=== PATIENT | male | born 1970 | race Caucasian/White ===

== ENCOUNTER 2016-11-06 08:45 | Day surgery (SDC) | payer OTHER ==
[~2016-11-06] VITALS: Ht 172.7 cm; Wt 75.0 kg
[~2016-11-06 08:45] MED LIST: ATAZ200 PO; EPZITAB4 PO; VALT1TAB26 PO; XANA0.5T PO
[2016-11-06] MEDS ORDERED: EMTR1TAB4 PO (09:19)
[2016-11-06 09:29] VITALS: BP 122/88; PULSE 88; RESP 16; TEMP 98.1; O2SAT 98
[2016-11-06] MEDS ORDERED: SODIUM CHLOR 0.9% 1000 ML INJ 1,000 ML IV SCH (10:00)
[2016-11-06 12:50] VITALS: BP 113/75; PULSE 76; RESP 16; TEMP 97.6; O2SAT 99
--- NOTE | 2016-11-06 13:50 | PD.RAD ---
Post Procedure Progress Note Pre Procedure Diagnosis: (1) Headache Post Procedure Diagnosis: (1) Headache Procedure Date: November 06, 2016 Supervising Radiologist: Kodi Mei JR Proceduralist/Assist: RT Arvin(R)() Anesthesia: Local Plan of Activity Patient to Unit: ROPU Patient Condition: Good See PACS Report for procedural detail/treatment Spinal Procedure Lumbar Puncture L3-L4 Fluid Removal (CCs): 11 Fluid Description: Clear Puncture Time: 13:36 Findings: Opening pressure: 10 cmH2O Jr. Sigifredo,Kodi De Los Santos MD November 06, 2016 13:50
[2016-11-06 15:00] VITALS: BP 109/70; PULSE 76; RESP 16; O2SAT 99
[2016-11-06 15:38] LABS: GROSS BLOOD TUBE #2 0 (0); SUPERNATE COLOR TUBE #1 CLEAR (CLEAR); SUPERNATE COLOR TUBE #2 CLEAR (CLEAR); VOLUME TUBE # 1 2.3 ML; VOLUME TUBE # 2 2.5 ML
[2016-11-06 15:39] LABS: CSF NEUTROPHILS 5 %; GROSS BLOOD TUBE #1 0 (0); GROSS BLOOD TUBE #3 0 (0); GROSS BLOOD TUBE #4 0 (0); SUPERNATE COLOR TUBE #3 CLEAR (CLEAR); SUPERNATE COLOR TUBE #4 CLEAR (CLEAR); VOLUME TUBE # 3 2.2 ML; VOLUME TUBE # 4 2.5 ML; WBC TUBE #4 5 /MM3 (0-10)
[2016-11-06 15:40] LABS: CSF LYMPHOCYTES 75 %; CSF MONOCYTES 20 %
--- NOTE | 2016-11-06 17:44 | RADRPT ---
EXAM DATE/TIME: 11/06/2016 13:38 [facility] COMPARISON: No previous studies available for comparison. INDICATIONS : Patient with history of headaches in need of lumbar puncture. MEDICAL HISTORY : 1.Meningitis 2.Increased level of lipids 3.Urogenital herpes 4.GERD 5.Hiatal hernia 6.Anxiety SURGICAL HISTORY : 1.T & A 2.Dental implants ENCOUNTER: Initial ACUITY: 1 month PAIN SCORE: 3/10 LOCATION: Neck LUMBAR PUNCTURE TIME: 1336 hours FLUORO TIME: 0.25 minutes IMAGE SERIES: ACCESS LEVEL: L3-4 FLUID: 11 cc of clear CSF was collected and sent to the laboratory for analysis. TECH NOTE; Opening pressures: 10 cm of [id number] BRIDGES MR#[id number] :68 Exam date/desc:November 06, 2016LUMBAR PUNCTURE PROCEDURE : 1. Fluoroscopic guided lumbar puncture. The risks, benefits and alternatives to the procedure were explained and verbal and written consent w as obtained. The site was prepped in sterile fashion. Full sterile technique was used, including ca p, mask, sterile gloves and gown and a large sterile sheet. Hand hygiene and 2% chlorhexidine and/or betadine/alcohol prep was utilized per protocol for cutaneous antisepsis. The skin and subcutaneous tissues were infiltrated with local anesthetic solution. With fluoroscopic guidance the lumbar thecal sac was punctured at the level above. The fluid describ ed above was removed without difficulty. The patient tolerated the procedure well and there were no complications. CONCLUSION: Uncomplicated fluoroscopically guided lumbar puncture. Opening pressures in the arturo l range. Kodi Mei Jr., MD on November 06, 2016 at 17:42 Board Certified Radiologist. This report was verified electronically.
[2016-11-07 11:23] LABS: HSV 1,PCR Negative (Negative)
[2016-11-09 14:05] LABS: CSF CRYPTOCOCCUS AG CONF ND (NOT DETECTD)
[2016-11-10 17:51] LABS: B. BURGDORFERI DNA PCR CSF NOT DETECTED (())
[2016-11-11 15:34] LABS: LYME IGG IMMUNOBLOT CSF None Detected bands (None Detected); LYME IGM IMMUNOBLOT CSF None Detected bands (None Detected); TOXOPLASMA AB IGG <0.90 (()); TOXOPLASMA AB IGM (CSF) <0.80 (())
[2016-11-12 23:54] LABS: VDRL CSF NON-REACTIVE (())
[2016-11-14] MEDS ORDERED: ATAZ200 PO (15:37)
[2016-11-14] MEDS ORDERED: VALT1TAB PO (15:37)
[2016-11-16] MEDS ORDERED: LACTCAP8 PO (11:27)
[2016-11-18] MEDS ORDERED: CEFT2INJ2 IV (08:41)
== END 2016-11-06 15:30 | disposition home or self-care (01) ==
LOC: HROP 08:45 → HRIP 08:46 → HROP 15:30
PROVIDERS: ATTEND Specialist
DX: R51 Headache (principal); K21.9 Gastro-esophageal reflux disease without esophagitis; F41.9 Anxiety disorder, unspecified; Z21 Asymptomatic human immunodeficiency virus [HIV] infection status; Z86.61 Personal history of infections of the central nervous system; Z88.5 Allergy status to narcotic agent; Z88.8 Allergy status to other drugs, medicaments and biological substances
CPT/HCPCS: 62270; 77003; 82945; 84157; 86403; 86592; 86618; 86777; 86778; 87070; 87102; 87205; 87206; 87252; 87497; 87529; 87799; 87801; 89051

== ENCOUNTER 2016-11-13 12:56 | Day surgery (SDC) | payer OTHER ==
[~2016-11-13 12:56] MED LIST changes: +EMTR1TAB4 PO; -EPZITAB4 PO; -XANA0.5T PO
[2016-11-13 13:20] VITALS: BP 124/79; PULSE 88; RESP 16; O2SAT 100
[2016-11-13] MEDS ORDERED: DOXY1CAP91 PO (13:25)
[2016-11-13] MEDS ORDERED: cefTRIAXone 2,000 MG/NS 100 ML IV ONE ×2 (13:30)
--- NOTE | 2016-11-13 14:31 | RADRPT ---
EXAM DATE/TIME: 11/13/2016 14:04 [facility] COMPARISON: No previous studies available for comparison. INDICATIONS : Patient presents with optic neuritis in need of peripheral intravenous placement for medication admi nistration. MEDICAL HISTORY : HIV hx SURGICAL HISTORY : n/a ENCOUNTER: Subsequent ACUITY: 1 month PAIN SCORE: 5/10 LOCATION: Neck FLUORO TIME: 0.8 minutes IMAGE SERIES: 1 ACCESS: Right basilic vein DEVICE(S): 1.) 4 [place] single lumen 39 cm Xcela Power PICC PROCEDURE : 1. Ultrasound guidance for venous catheterization. 2. Fluoroscopic guidance. 3. Ultrasound & fluoroscopic guided central venous Power PICC line placement. The risks, benefits and alternatives to the procedure were explained and verbal and written consent w as obtained. The site was prepped in sterile fashion. Full sterile technique was used, including ca p, mask, sterile gloves and gown and a large sterile sheet. Hand hygiene and 2% chlorhexidine prep w as utilized per protocol for cutaneous antisepsis with appropriate dry time for site. The skin and s ubcutaneous tissues were infiltrated with local anesthetic solution. Under direct ultrasound guidance, a suitable vein was accessed and a measuring guidewire was introduc ed and positioned in the central venous system. The ultrasound images depicting access guidance were saved and stored to PACS for permanent record. A Power Injectable PICC line was cut to prescribed length and introduced, positioned with tip at the cavoatrial junction level. The line was flushed and secured per protocol. CONCLUSION: 1. Uncomplicated central venous Power PICC line placement. 2. The PICC line can be used immediately. Cosmo Florentino MD on November 13, 2016 at 14:29 Board Certified Radiologist. This report was verified electronically.
[2016-11-13] MEDS ORDERED: SODIUM CHLORIDE 0.9% FLUSH 10 ML FLUSH IVF PRN ×2 (15:45)
[2016-11-14] MEDS ORDERED: SODIUM CHLORIDE 0.9% FLUSH 10 ML FLUSH IVF SCH (09:00)
[2016-11-14] MEDS ORDERED: ATAZ200 PO (15:37)
[2016-11-14] MEDS ORDERED: VALT1TAB PO (15:37)
[2016-11-16] MEDS ORDERED: LACTCAP8 PO (11:27)
[2016-11-18] MEDS ORDERED: CEFT2INJ2 IV (08:41)
== END 2016-11-13 15:00 | disposition home or self-care (01) ==
LOC: HRIP 12:56 → HROP 12:56
PROVIDERS: ATTEND Specialist
DX: H46.9 Unspecified optic neuritis (principal)
CPT/HCPCS: 36569; 76937; 77001; 96365; C1751; J0696; J1642

== ENCOUNTER 2017-01-29 07:00 | Day surgery (SDC) | payer OTHER ==
[~2017-01-29] VITALS: Ht 172.7 cm; Wt 75.0 kg
[~2017-01-29 07:00] MED LIST changes: +CEFT2INJ2 IV; +DOXY1CAP91 PO; +LACTCAP8 PO; +VALT1TAB PO; -VALT1TAB26 PO
[2017-01-29 07:35] VITALS: BP 109/78; PULSE 75; RESP 17; TEMP 98.5; O2SAT 97
[2017-01-29 07:45] LABS: AUTOMATED NEUTROPHIL # 1.9 TH/MM3 (1.8-7.7); BASOPHIL % 0.8 % (0.0-2.0); EOSINOPHIL # 0.1 TH/MM3 (0-0.4); EOSINOPHIL % 2.8 % (0.0-4.0); HEMATOCRIT 41.4 % (39.0-51.0); HEMO FLAGS DIFF FINAL; LYMPH % 40.5 % (9.0-44.0); LYMPHOCYTE # 1.7 TH/MM3 (1.0-4.8); MEAN CELL VOLUME 94.3 FL (80.0-100.0); MEAN CORPUSCULAR HEMOGLOBIN 33.7 PG (27.0-34.0); MEAN CORPUSCULAR HGB CONC 35.8 % (32.0-36.0); MONO % 11.5 % (0.0-8.0); NEUT % 44.4 % (16.0-70.0); PLATELET COUNT 172 TH/MM3 (150-450); RED BLOOD COUNT 4.39 MIL/MM3 (4.50-5.90); RED CELL DISTRIBUTION WIDTH 13.4 % (11.6-17.2); WHITE BLOOD COUNT 4.2 TH/MM3 (4.0-11.0)
[2017-01-29 07:51] LABS: APTT (PATIENT) 30.4 SEC (24.3-30.1)
[2017-01-29 07:56] LABS: BICARBONATE 28.9 MEQ/L (21.0-32.0); POTASSIUM 4.2 MEQ/L (3.5-5.1)
--- NOTE | 2017-01-29 09:27 | PD.RAD ---
Post Procedure Progress Note Pre Procedure Diagnosis: (1) Headache (2) Weakness Post Procedure Diagnosis: (1) Headache (2) Weakness Procedure Date: Jan 29, 2017 Supervising Radiologist: Pankaj Gardiner Proceduralist/Assist: Sapna Mays RT(R), RT Becky(R)() Anesthesia: Local Plan of Activity Patient to Unit: ROPU Patient Condition: Good See PACS Report for procedural detail/treatment Spinal Procedure Lumbar Puncture L3 Fluid Removal (CCs): 20 Fluid Description: Clear Puncture Time: 09:08 Pankaj Gardiner MD Jan 29, 2017 09:27
[2017-01-29 09:36] VITALS: BP 109/78; PULSE 75; RESP 16; TEMP 98.5; O2SAT 97
[2017-01-29 11:25] VITALS: BP 123/72; PULSE 82; RESP 17; TEMP 98.2; O2SAT 98
[2017-01-29 11:29] LABS: GROSS BLOOD TUBE #1 0 (0); SUPERNATE COLOR TUBE #1 CLEAR (CLEAR)
[2017-01-29 11:30] LABS: CSF LYMPHOCYTES 89 %; CSF MONOCYTES 11 %; CSF NEUTROPHILS 0 %; GROSS BLOOD TUBE #2 0 (0); GROSS BLOOD TUBE #3 0 (0); GROSS BLOOD TUBE #4 0 (0); SUPERNATE COLOR TUBE #2 CLEAR (CLEAR); SUPERNATE COLOR TUBE #3 CLEAR (CLEAR); SUPERNATE COLOR TUBE #4 CLEAR (CLEAR); VOLUME TUBE # 2 4.2 ML; VOLUME TUBE # 4 7.5 ML
[2017-01-29 11:31] LABS: WBC TUBE #4 3 /MM3 (0-10)
[2017-01-30 09:44] LABS: HSV 1,PCR Negative (Negative)
--- NOTE | 2017-01-30 14:57 | RADRPT ---
EXAM DATE/TIME: 01/29/2017 09:03 [facility] COMPARISON: LUMBAR PUNCTURE, November 06, 2016, 13:38. INDICATIONS : Patient is in need of a lumbar puncture for evaluation due to head pain and pressure. MEDICAL HISTORY : History of HIV, meningitis, HLD, brachial neuritis. SURGICAL HISTORY : History of tonsillectomy, adenoidectomy, dental implants. ENCOUNTER: Subsequent ACUITY: 1 month PAIN SCORE: 5/10 LOCATION: head LUMBAR PUNCTURE TIME: 0908 hours FLUORO TIME: 0.8 minutes IMAGE SERIES: 1 ACCESS LEVEL: L3-4 FLUID: 20 cc of clear, yellow CSF was collected and sent to the laboratory for analysis. PROCEDURE : 1. Fluoroscopic guided lumbar puncture. The risks, benefits and alternatives to the procedure were explained and verbal and written consent w as obtained. The site was prepped in sterile fashion. Full sterile technique was used, including ca p, mask, sterile gloves and gown and a large sterile sheet. Hand hygiene and 2% chlorhexidine and/or betadine/alcohol prep was utilized per protocol for cutaneous antisepsis. The skin and subcutaneous tissues were infiltrated with local anesthetic solution. With fluoroscopic guidance the lumbar thecal sac was punctured at the level above. The fluid describ ed above was removed without difficulty. The patient tolerated the procedure well and there were no complications. CONCLUSION: Uncomplicated fluoroscopically guided lumbar puncture. Pankaj Gardiner MD on January 30, 2017 at 14:55 Board Certified Radiologist. This report was verified electronically.
[2017-01-31 13:51] LABS: B. BURGDORFERI DNA PCR CSF NOT DETECTED (())
[2017-01-31 19:53] LABS: VDRL CSF NON-REACTIVE (())
[2017-02-03 08:48] LABS: LYME IGG IMMUNOBLOT CSF None Detected bands (None Detected); LYME IGM IMMUNOBLOT CSF None Detected bands (None Detected)
[2017-02-04 03:50] LABS: VZV PCR RESULT <500 (())
== END 2017-01-29 11:30 | disposition home or self-care (01) ==
LOC: HROP 07:00 → HRIP 07:01 → HROP 11:30
PROVIDERS: ATTEND Specialist
DX: R51 Headache (principal); M54.12 Radiculopathy, cervical region; E78.5 Hyperlipidemia, unspecified; R53.1 Weakness; Z86.61 Personal history of infections of the central nervous system; Z21 Asymptomatic human immunodeficiency virus [HIV] infection status
CPT/HCPCS: 62270; 77003; 80048; 84157; 85025; 85610; 85730; 86592; 86618; 87252; 87529; 87799; 87801; 89051